=== PATIENT | female | born 1965 | race Hispanic/Latino ===

== ENCOUNTER 2021-09-09 12:42 | Inpatient (IN) | payer OTHER ==
[~2021-09-09] VITALS: Ht 152.4 cm; Wt 95.4 kg
[2021-09-09 15:30] LABS: BASOPHILS % (AUTO) 0.5 % (0.0-5.0); EOSINOPHILS % (AUTO) 0.5 % (0.0-8.0); HEMATOCRIT 35.6 % (36-48); LYMPHOCYTES % (AUTO) 11.2 % (21.0-51.0); MEAN CORPUSCULAR HEMOGLOBIN 28.2 pg (27.0-33.0); MEAN CORPUSCULAR HGB CONC 31.2 g/dL (32.0-36.0); MEAN CORPUSCULAR VOLUME 90.6 fL (79-99); MONOCYTES % (AUTO) 11.3 % (3.0-13.0); NEUTROPHILS % (AUTO) 75.5 % (40.0-77.0); PLATELET COUNT (AUTO) 285 K/uL (130-400); RED BLOOD CELL COUNT(AUTO) 3.93 MIL/uL (4.00-5.50); RED CELL DISTRIBUTION WIDTH 13.6 % (11.0-15.5); WHITE BLOOD COUNT (AUTO) 10.8 K/uL (4.8-10.8)
[2021-09-09] MEDS ORDERED: CLINDAMYCIN IVPB 600MG/50ML 50 ML IV SCH (15:30)
[2021-09-09] MEDS ORDERED: MORPHINE 2 MG SYG IVP ONE (15:30)
[2021-09-09] MEDS ORDERED: ONDANSETRON 4MG INJ IVP ONE (15:30)
[2021-09-09 15:45] LABS: CREATININE 1.2 mg/dL (0.5-1.5); POTASSIUM 4.1 mmol/L (3.5-5.1)
[2021-09-09 15:49] LABS: ALBUMIN 2.5 g/dL (3.5-5.0); BILIRUBIN,TOTAL 0.3 mg/dL (0.2-1.0); TOTAL PROTEIN, SERUM 7.6 g/dL (6.0-8.3)
[2021-09-09 15:59] LABS: CRP QUANTITATIVE 350.1 mg/L (0.00-9.0)
[2021-09-09] MEDS ORDERED: 0.9%NACL 1000ML 1,000 ML IV SCH ×2 (16:00→21:30)
[2021-09-09] MEDS ORDERED: VANCOMYCIN 1G VIAL IVPB ONE (16:00)
[2021-09-09] MEDS ORDERED: ZOSYN 3.375GM +NS 50ML IV SCH (16:00)
[2021-09-09] MEDS ORDERED: IOHEXOL-350 75 ML VIAL IV ONE (16:05)
[2021-09-09] MEDS ORDERED: ACETAMINOPHEN 500 MG TABLET ONE (17:00)
[2021-09-09] MEDS ORDERED: VANCOMYCIN PROTOCOL PER PHARMACY IV SCH (18:00)
[2021-09-09] MEDS ORDERED: INSULIN HUMULIN R 100 UNIT/ML 3ML SQ SCH (18:00)
[2021-09-09] MEDS ORDERED: MEROPENEM 1 GM VIAL IVP SCH (18:00)
[2021-09-09] MEDS: 0.9%NACL 1000ML 1,000 ML IV SCH (18:00)
[2021-09-09 18:29] LABS: HEMOGLOBIN A1C 13.8 % (4.0-6.0)
[2021-09-09 18:50] LABS: THYROID STIMULATING HORMONE 0.98 uIU/mL (0.36-3.74)
[2021-09-09 19:12] LABS: ABG BASE EXCESS -6.6 mmol/L (-2.0-3.0); ABG HCO3 16.6 mmol/L (21.0-28.0); ABG OXYGEN SATURATION 92.7 % (95.0-99.0); ABG PCO2 27 mmHg (32-45)
[2021-09-09] MEDS ORDERED: VANCOMYCIN 1G/250ML KIT 250 ML IV ONE (19:13)
[2021-09-09] MEDS ORDERED: 0.9%NACL 1000ML 1,000 ML IV ONE (19:31)
[2021-09-09] MEDS: INSULIN HUMULIN R 100 UNIT/ML 3ML SQ SCH (20:00)
[2021-09-09] MEDS ORDERED: CLINDAMYCIN IVPB 600MG/50ML 50 ML IV ONE (20:55)
[2021-09-09] MEDS: INSULIN GLARGINE 100 UNITS/ML 10 ML VIAL SQ SCH (22:19)
[2021-09-09] MEDS: MEROPENEM 1 GM VIAL IVP SCH (22:30)
[2021-09-09] MEDS ORDERED: HYDROMORPHONE 1 MG INJ ONE (23:23)
[2021-09-09 23:30] VITALS: BP 113/49
[2021-09-10] VITALS (29 sets, daily range): BP systolic 91–123; BP diastolic 40–58
[2021-09-10 00:25] LABS: APPEARANCE,URINE Clear (CLEAR); BILIRUBIN,URINE Negative (NEGATIVE); COLOR,URINE Yellow (YELLOW); GLUCOSE, URINE (UA) >=1000 mg/dL (NEGATIVE); KETONES,URINE 15 mg/dL (NEGATIVE); LEUKOCYTE ESTERASE ,URINE Negative (NEGATIVE); NITRATE,URINE Negative (NEGATIVE); OCCULT BLOOD,URINE Moderate (NEGATIVE); PH,URINE 5.5 (5.0-8.0); PROTEIN,URINE POS 1+ mg/dL (NEGATIVE)
[2021-09-10] MEDS ORDERED: LOSA50TA64 PO (00:44)
[2021-09-10] MEDS ORDERED: INSU100V12 SQ (00:44)
[2021-09-10] MEDS ORDERED: vit D3 PO (00:44)
[2021-09-10] MEDS ORDERED: MELA5TAB21 PO (00:44)
[2021-09-10] MEDS ORDERED: IBUP-2070 PO (00:44)
[2021-09-10] MEDS ORDERED: EXEN10PE3 SQ (00:44)
[2021-09-10] MEDS ORDERED: OMEP20TA20 PO (00:44)
[2021-09-10] MEDS ORDERED: GABA300S PO (00:44)
[2021-09-10] MEDS ORDERED: CIDE500T PO (00:44)
[2021-09-10] MEDS ORDERED: CANA300T PO (00:44)
[2021-09-10] MEDS ORDERED: LEVO125T98 PO (00:44)
[2021-09-10] MEDS ORDERED: METF-446 PO (00:44)
[2021-09-10] MEDS ORDERED: LEVO150T94 PO (00:44)
[2021-09-10] MEDS ORDERED: SULF1TAB42 PO (00:44)
[2021-09-10 00:46] LABS: BACTERIA,URINE Few /HPF (None Seen); RBC,URINE 0-1 /HPF (0-1); SQUAMOUS EPITHELIAL CELL,UR Rare /HPF (0-2); WBC,URINE None Seen /HPF (0-1)
[2021-09-10 00:52] LABS: POTASSIUM 3.1 mmol/L (3.5-5.1)
[2021-09-10] MEDS: HYDROMORPHONE 1 MG INJ IVP PRN ×3 (02:43→12:01)
[2021-09-10] MEDS: LIDOCAINE HCL-MPF 1% 2ML VIAL IV PRN ×2 (03:17→06:37)
[2021-09-10] MEDS: POTASSIUM CHLORIDE 20MEQ/100ML 100 ML IV PRN ×2 (03:18→06:36)
[2021-09-10] MEDS: INSULIN HUMULIN R 100 UNIT/ML 3ML SQ SCH ×5 (04:00→18:00)
[2021-09-10 04:19] LABS: ABG BASE EXCESS -4.8 mmol/L (-2.0-3.0); ABG HCO3 19.1 mmol/L (21.0-28.0); ABG OXYGEN SATURATION 91.9 % (95.0-99.0); ABG PCO2 32 mmHg (32-45)
[2021-09-10] MEDS ORDERED: COMPOUND IV REFRIGERATED 1 EACH IVSOLN MISC PRN (06:30)
[2021-09-10] MEDS: 0.9%NACL 1000ML 1,000 ML IV SCH ×2 (06:36→11:55)
[2021-09-10 08:02] LABS: CREATININE 0.9 mg/dL (0.5-1.5); POTASSIUM 3.8 mmol/L (3.5-5.1)
[2021-09-10] MEDS: MEROPENEM 1 GM VIAL IVP SCH ×3 (09:45→22:20)
[2021-09-10] MEDS: PANTOPRAZOLE 40 MG/VIAL IVP SCH (09:45)
[2021-09-10] MEDS ORDERED: 0.9% NACL 250ML IV SCH (12:00)
[2021-09-10] MEDS ORDERED: MEROPENEM 1 GM VIAL IVP SCH (12:00)
[2021-09-10 12:17] LABS: INR 0.94 (0.85-1.15); PROTHROMBIN TIME 10.3 SEC (9.6-11.6)
[2021-09-10 12:19] LABS: PARTIAL THROMBOPLASTIN TIME 28.6 SEC (26.3-35.5)
[2021-09-10] MEDS ORDERED: CEFAZOLIN SODIUM 1 GM VIAL ONE (12:31)
[2021-09-10] MEDS ORDERED: BUPIVACAINE/PF 0.25% 30ML VIAL IJ ONE (12:31)
[2021-09-10] MEDS ORDERED: LIDOCAINE 1%-EPI 1:100,000 20 ML VIAL IJ ONE (12:32)
[2021-09-10] MEDS ORDERED: LIDOCAINE PF 100MG/5ML (2%) SYRINGE 5ML ONE (12:38)
[2021-09-10] MEDS ORDERED: MIDAZOLAM HCL 1 MG/ML 2ML VIAL ONE (12:39)
[2021-09-10] MEDS ORDERED: PROPOFOL 10 MG/ML 20ML VIAL IV ONE (12:39)
[2021-09-10] MEDS ORDERED: FENTANYL CITRATE PF 50 MCG/1 ML 2ML VIAL ONE ×2 (12:39→13:34)
[2021-09-10] MEDS ORDERED: ONDANSETRON 4MG INJ ONE (12:49)
[2021-09-10] MEDS ORDERED: ROCURONIUM 10MG/1ML SYR 10 MG/ML ML ONE (12:55)
[2021-09-10 13:05] LABS: CREATININE 0.8 mg/dL (0.5-1.5); MAGNESIUM 1.8 mg/dL (1.80-2.40)
[2021-09-10] MEDS ORDERED: MEPERIDINE-PF 25 MG/ML SYG ONE (13:06)
[2021-09-10] MEDS ORDERED: PHENYLEPHRINE HCL 10 MG/ML 1ML VIAL IV ONE (13:07)
[2021-09-10] MEDS ORDERED: KETOROLAC 30MG VIAL (30MG/ML) ONE (13:23)
[2021-09-10] MEDS ORDERED: GLYCOPYRROLATE 1 MG/5 ML SYRINGE ONE (13:33)
[2021-09-10] MEDS ORDERED: NEOSTIGMINE 5MG/5ML SYR IV ONE (13:33)
[2021-09-10 16:20] LABS: CREATININE 0.7 mg/dL (0.5-1.5); MAGNESIUM 1.8 mg/dL (1.80-2.40); POTASSIUM 4.1 mmol/L (3.5-5.1)
[2021-09-10] MEDS: VANCOMYCIN 1.25GM/NS 250ML IVPB SCH ×2 (16:46)
[2021-09-10] MEDS ORDERED: INSULIN HUMULIN R 100 UNIT/ML 3ML SQ SCH (21:00)
[2021-09-10] MEDS: INSULIN GLARGINE 100 UNITS/ML 10 ML VIAL SQ SCH (22:42)
[2021-09-10] MEDS ORDERED: ACETAMINOPHEN 325 MG TAB ONE (22:49)
[2021-09-10] MEDS ORDERED: ACETAMINOPHEN 325 MG TAB PO PRN ×2 (23:00)
[2021-09-11] MEDS: 0.9%NACL 1000ML 1,000 ML IV SCH (03:56)
[2021-09-11] MEDS: KETOROLAC 30MG VIAL (30MG/ML) IVP PRN ×3 (03:57→22:38)
[2021-09-11 04:10] VITALS: BP 113/54
[2021-09-11] MEDS: INSULIN HUMULIN R 100 UNIT/ML 3ML SQ SCH ×4 (06:07→20:24)
[2021-09-11 06:34] LABS: BASOPHILS % (AUTO) 0.6 % (0.0-5.0); EOSINOPHILS % (AUTO) 2.1 % (0.0-8.0); HEMATOCRIT 29.4 % (36-48); LYMPHOCYTES % (AUTO) 17.3 % (21.0-51.0); MEAN CORPUSCULAR HEMOGLOBIN 28.1 pg (27.0-33.0); MEAN CORPUSCULAR VOLUME 90.7 fL (79-99); MONOCYTES % (AUTO) 12.2 % (3.0-13.0); NEUTROPHILS % (AUTO) 66.2 % (40.0-77.0); PLATELET COUNT (AUTO) 277 K/uL (130-400); RED BLOOD CELL COUNT(AUTO) 3.24 MIL/uL (4.00-5.50); RED CELL DISTRIBUTION WIDTH 13.9 % (11.0-15.5)
[2021-09-11 06:50] LABS: ALBUMIN 1.5 g/dL (3.5-5.0); BILIRUBIN,TOTAL 0.3 mg/dL (0.2-1.0); CREATININE 0.7 mg/dL (0.5-1.5); MAGNESIUM 1.8 mg/dL (1.80-2.40); TOTAL PROTEIN, SERUM 5.5 g/dL (6.0-8.3)
[2021-09-11 08:00] VITALS: BP 107/46
[2021-09-11] MEDS ORDERED: IODOSORB GEL 40GM TP SCH (09:00)
[2021-09-11] MEDS: PANTOPRAZOLE 40 MG/VIAL IVP SCH (09:15)
[2021-09-11] MEDS ORDERED: MEROPENEM 1 GM VIAL IVP SCH (10:30)
[2021-09-11 12:00] VITALS: BP 129/62
[2021-09-11] MEDS: VANCOMYCIN 1.25GM/NS 250ML IVPB SCH ×2 (13:21)
[2021-09-11] MEDS ORDERED: LIDOCAINE HCL 2% JELLY 5 ML TP SCH (13:50)
[2021-09-11] MEDS: OXYCODONE/ACETAMIN 5/325MG TAB PO PRN (14:31)
[2021-09-11 15:59] LABS: APPEARANCE,URINE Clear (CLEAR); BILIRUBIN,URINE Negative (NEGATIVE); COLOR,URINE Yellow (YELLOW); GLUCOSE, URINE (UA) >=1000 mg/dL (NEGATIVE); KETONES,URINE >=160 mg/dL (NEGATIVE); LEUKOCYTE ESTERASE ,URINE Negative (NEGATIVE); NITRATE,URINE Negative (NEGATIVE); OCCULT BLOOD,URINE Negative (NEGATIVE); PROTEIN,URINE Trace mg/dL (NEGATIVE)
[2021-09-11 16:00] VITALS: BP 115/53
[2021-09-11 16:11] LABS: RBC,URINE 0-1 /HPF (0-1); SQUAMOUS EPITHELIAL CELL,UR Rare /HPF (0-2); WBC,URINE 0-1 /HPF (0-1)
[2021-09-11 16:12] LABS: BACTERIA,URINE Few /HPF (None Seen)
[2021-09-11 20:05] VITALS: BP 119/55
[2021-09-11] MEDS: INSULIN GLARGINE 100 UNITS/ML 10 ML VIAL SQ SCH (20:23)
[2021-09-11] MEDS: NYSTATIN 15 GM POWDER TP SCH (20:25)
[2021-09-11] MEDS: MEROPENEM 1 GM VIAL IVP SCH (22:38)
[2021-09-12] VITALS (7 sets, daily range): BP systolic 99–122; BP diastolic 50–60
[2021-09-12 04:17] LABS: BASOPHILS % (AUTO) 0.4 % (0.0-5.0); EOSINOPHILS % (AUTO) 2.4 % (0.0-8.0); HEMATOCRIT 31.8 % (36-48); MEAN CORPUSCULAR HEMOGLOBIN 28.6 pg (27.0-33.0); MEAN CORPUSCULAR HGB CONC 31.1 g/dL (32.0-36.0); MEAN CORPUSCULAR VOLUME 91.9 fL (79-99); MONOCYTES % (AUTO) 9.5 % (3.0-13.0); NEUTROPHILS % (AUTO) 64.9 % (40.0-77.0); PLATELET COUNT (AUTO) 343 K/uL (130-400); RED BLOOD CELL COUNT(AUTO) 3.46 MIL/uL (4.00-5.50); RED CELL DISTRIBUTION WIDTH 14.2 % (11.0-15.5); WHITE BLOOD COUNT (AUTO) 9.1 K/uL (4.8-10.8)
[2021-09-12 04:42] LABS: CREATININE 0.7 mg/dL (0.5-1.5); POTASSIUM 4.1 mmol/L (3.5-5.1)
[2021-09-12 05:29] LABS: CRP QUANTITATIVE 160.5 mg/L (0.00-9.0)
[2021-09-12] MEDS: KETOROLAC 30MG VIAL (30MG/ML) IVP PRN ×3 (06:25→21:21)
[2021-09-12] MEDS: INSULIN HUMULIN R 100 UNIT/ML 3ML SQ SCH ×4 (06:27→21:00)
[2021-09-12] MEDS: PANTOPRAZOLE 40 MG/VIAL IVP SCH (08:55)
[2021-09-12] MEDS: MEROPENEM 1 GM VIAL IVP SCH ×2 (11:36→23:52)
[2021-09-12] MEDS: OXYCODONE/ACETAMIN 5/325MG TAB PO PRN (11:37)
[2021-09-12] MEDS: NYSTATIN 15 GM POWDER TP SCH ×2 (11:44→21:26)
[2021-09-12] MEDS ORDERED: MORPHINE 4 MG SYG ONE (13:48)
[2021-09-12] MEDS ORDERED: MORPHINE 4 MG SYG IVP PRN (14:30)
[2021-09-12] MEDS ORDERED: MORPHINE 4 MG SYG IM ONE (14:30)
[2021-09-12] MEDS: VANCOMYCIN 1.25GM/NS 250ML IVPB SCH ×2 (14:46)
[2021-09-12] MEDS: INSULIN GLARGINE 100 UNITS/ML 10 ML VIAL SQ SCH (21:18)
[2021-09-13 04:12] VITALS: BP 151/65
[2021-09-13] MEDS: KETOROLAC 30MG VIAL (30MG/ML) IVP PRN ×2 (04:19→18:17)
[2021-09-13 04:21] LABS: HEMATOCRIT 30.7 % (36-48); MEAN CORPUSCULAR HGB CONC 31.3 g/dL (32.0-36.0); MEAN CORPUSCULAR VOLUME 89.5 fL (79-99); RED BLOOD CELL COUNT(AUTO) 3.43 MIL/uL (4.00-5.50); WHITE BLOOD COUNT (AUTO) 9.6 K/uL (4.8-10.8)
[2021-09-13 04:33] LABS: ALBUMIN 1.6 g/dL (3.5-5.0); CREATININE 0.8 mg/dL (0.5-1.5)
[2021-09-13] MEDS: OXYCODONE/ACETAMIN 5/325MG TAB PO PRN ×2 (05:07→15:08)
[2021-09-13] MEDS: INSULIN HUMULIN R 100 UNIT/ML 3ML SQ SCH ×4 (06:25→21:00)
[2021-09-13] MEDS ORDERED: LEVOTHYROXINE 150 MCG TABLET PO SCH (06:30)
[2021-09-13 07:00] VITALS: BP 124/59
[2021-09-13] MEDS: PANTOPRAZOLE 40 MG/VIAL IVP SCH (10:23)
[2021-09-13] MEDS: MEROPENEM 1 GM VIAL IVP SCH ×2 (10:23→22:39)
[2021-09-13] MEDS: NYSTATIN 15 GM POWDER TP SCH ×2 (10:24→21:00)
[2021-09-13] MEDS: LIDOCAINE HCL 2% JELLY 5 ML TP SCH ×2 (10:24→15:23)
[2021-09-13 11:27] VITALS: BP 132/60
[2021-09-13] MEDS ORDERED: VANCOMYCIN 1.25GM/NS 250ML IVPB SCH ×2 (15:00)
[2021-09-13 16:00] VITALS: BP 120/60
[2021-09-13 20:18] VITALS: BP 105/53
[2021-09-13] MEDS: INSULIN GLARGINE 100 UNITS/ML 10 ML VIAL SQ SCH (22:40)
[2021-09-13 23:21] VITALS: BP 138/62
[2021-09-17] MEDS ORDERED: LEVOTHYROXINE 125 MCG TABLET PO SCH (06:30)
== END 2021-09-14 00:12 | DRG 853 ==
LOC: EDH 12:42 → EDHIP 17:32 → 4CH 23:25
PROVIDERS: ADMIT Internal Medicine; ATTEND Internal Medicine
PROC: 0W9N0ZZ Drainage of Female Perineum, Open Approach (ICD-10-PCS; principal; 2021-09-10 12:52)
DX: A41.9 Sepsis, unspecified organism (principal); E11.10 Type 2 diabetes mellitus with ketoacidosis without coma; L03.314 Cellulitis of groin; E87.1 Hypo-osmolality and hyponatremia; L02.215 Cutaneous abscess of perineum; L02.214 Cutaneous abscess of groin; L03.317 Cellulitis of buttock; Z68.41 Body mass index [BMI] 40.0-44.9, adult; E46 Unspecified protein-calorie malnutrition; Z20.822 Contact with and (suspected) exposure to COVID-19; K21.9 Gastro-esophageal reflux disease without esophagitis; E03.9 Hypothyroidism, unspecified; I10 Essential (primary) hypertension; Z83.3 Family history of diabetes mellitus; E66.01 Morbid (severe) obesity due to excess calories
CPT/HCPCS: 36415; 36600; 71045; 74177; 80048; 80053; 80202; 81001; 82010; 82040; 82435; 82550; 82803; 82947; 82948; 83036; 83605; 83735; 84132; 84145; 84295; 84443; 84484; 84703; 85018; 85025; 85027; 85610; 85651; 85730; 86140; 86677; 86850; 86900; 86901; 87040; 87070; 87076; 87088; 87205; 87635; 87804; 93005; C9113; G0378; J0690; J1170; J1815; J1885; J2001; J2175; J2185; J2250; J2270; J2370; J2405; J2543; J2704; J2710; J3010; J3370; J3480; J3490; J7030; J7050; Q9967

== ENCOUNTER → 2021-10-17 | Outpatient (CLI) | payer OTHER ==
[~2021-10-17] MED LIST: LEVO125T98 PO; LEVO150T94 PO; LIDOCAINE HCL 4% LTA SOL 4 ML VIAL TP ONE
== END | disposition home or self-care (01) ==
LOC: WHH 11:00
PROVIDERS: ATTEND Family Medicine
DX: T81.89XA Other complications of procedures, not elsewhere classified, initial encounter (principal); S71.101A Unspecified open wound, right thigh, initial encounter; E11.21 Type 2 diabetes mellitus with diabetic nephropathy; I10 Essential (primary) hypertension; E03.9 Hypothyroidism, unspecified; K21.9 Gastro-esophageal reflux disease without esophagitis; E66.01 Morbid (severe) obesity due to excess calories; Z68.35 Body mass index [BMI] 35.0-35.9, adult; Z79.84 Long term (current) use of oral hypoglycemic drugs; Z79.4 Long term (current) use of insulin; Z79.899 Other long term (current) drug therapy; X58.XXXA Exposure to other specified factors, initial encounter; Y93.89 Activity, other specified; Y92.89 Other specified places as the place of occurrence of the external cause; Y99.8 Other external cause status; Y83.8 Other surgical procedures as the cause of abnormal reaction of the patient, or of later complication, without mention of misadventure at the time of the procedure; Y92.238 Other place in hospital as the place of occurrence of the external cause
CPT/HCPCS: 11042; A4450

== ENCOUNTER 2021-10-20 21:50 | Emergency (ER) | payer OTHER ==
[~2021-10-20] VITALS: Ht 154.9 cm; Wt 83.9 kg
[~2021-10-20 21:50] MED LIST changes: -LIDOCAINE HCL 4% LTA SOL 4 ML VIAL TP ONE
[2021-10-20 22:12] VITALS: BP 128/52
== END 2021-10-20 22:25 | disposition home or self-care (01) ==
LOC: EDH 21:50
DX: U07.1 COVID-19 (principal); R22.0 Localized swelling, mass and lump, head; T43.225A Adverse effect of selective serotonin reuptake inhibitors, initial encounter; E11.9 Type 2 diabetes mellitus without complications; Y92.89 Other specified places as the place of occurrence of the external cause
CPT/HCPCS: 99281

== ENCOUNTER → 2021-10-24 | Outpatient (CLI) | payer OTHER ==
[~2021-10-24] MED LIST changes: +LIDOCAINE HCL 4% LTA SOL 4 ML VIAL TP ONE
== END | disposition home or self-care (01) ==
LOC: WHH 10:02
PROVIDERS: ATTEND Family Medicine
DX: T81.89XD Other complications of procedures, not elsewhere classified, subsequent encounter (principal); S71.101D Unspecified open wound, right thigh, subsequent encounter; E11.21 Type 2 diabetes mellitus with diabetic nephropathy; I10 Essential (primary) hypertension; E03.9 Hypothyroidism, unspecified; K21.9 Gastro-esophageal reflux disease without esophagitis; E66.01 Morbid (severe) obesity due to excess calories; Z68.35 Body mass index [BMI] 35.0-35.9, adult; Z79.84 Long term (current) use of oral hypoglycemic drugs; Z79.4 Long term (current) use of insulin; Z79.899 Other long term (current) drug therapy; X58.XXXD Exposure to other specified factors, subsequent encounter; Y83.8 Other surgical procedures as the cause of abnormal reaction of the patient, or of later complication, without mention of misadventure at the time of the procedure
CPT/HCPCS: 11042; A6248